=== PATIENT | female | born 2000 | race Caucasian/White ===

== ENCOUNTER 2020-01-24 10:27 | Emergency (ER) | payer BC, OTHER ==
[2020-01-24] MEDS ORDERED: Dextrose 5%-0.9% NaCl 1,000 ML IV SCH (11:15)
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
[2020-01-24] MEDS ORDERED: Iopamidol 612 MG/ML 50 ML SDV IVPUSH ONE (11:27)
[2020-01-24] MEDS ORDERED: Iopamidol 612 MG/ML 100 ML Bottle IVPUSH ONE (11:27)
[2020-01-24] MEDS: Sodium Chloride 0.9% 10 ML Syringe FLUSH PRN ×2 (11:46→12:08)
[2020-01-24] MEDS ORDERED: LORazepam 2 MG/ML SDV IVPUSH ONE (11:55)
[2020-01-24] MEDS ORDERED: LORazepam 2 MG/ML SDV ONE (11:57)
[2020-01-24] MEDS ORDERED: Ondansetron 4 MG/2 ML SDV IVPUSH ONE (13:34)
[2020-01-24] MEDS ORDERED: Ondansetron 4 MG/2 ML SDV ONE (13:35)
== END 2020-01-24 14:15 | disposition home or self-care (01) ==
LOC: JD.ED 10:27
DX: S27.321A Contusion of lung, unilateral, initial encounter (principal); S80.12XA Contusion of left lower leg, initial encounter; S30.811A Abrasion of abdominal wall, initial encounter; M25.551 Pain in right hip; M25.562 Pain in left knee; M25.561 Pain in right knee; V53.5XXA Driver of pick-up truck or van injured in collision with car, pick-up truck or van in traffic accident, initial encounter
CPT/HCPCS: 36415; 71045; 71260; 73552; 73590; 74177; 80053; 81001; 82550; 83690; 85025; 85610; 85730; 96361; 96374; 96375; 99285; J2060; J2405; J7042; Q9967; 99284

== ENCOUNTER 2020-02-05 19:40 | Emergency (ER) | payer OTHER ==
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
[2020-02-05] MEDS ORDERED: Cephalexin 500 MG Cap PO ONE (22:01)
== END 2020-02-05 22:21 | disposition home or self-care (01) ==
LOC: JD.ED 19:40
DX: N83.201 Unspecified ovarian cyst, right side (principal); L03.116 Cellulitis of left lower limb; N93.8 Other specified abnormal uterine and vaginal bleeding
CPT/HCPCS: 36415; 76830; 80053; 84703; 85025; 93971; 99284; A9270